=== PATIENT | female | born 1950 | race Caucasian/White ===

== ENCOUNTER 2023-01-01 10:15 | Emergency (ER) | payer OTHER ==
[~2023-01-01] VITALS: Ht 160 cm; Wt 77.3 kg
[2023-01-01] MEDS ORDERED: proparacaine 0.5% ophthalmic drops 15ml EACHEYE ONE (10:35)
[2023-01-01 10:47] VITALS: BP 163/102
[2023-01-01] MEDS ORDERED: TOBR5DRO2 RIGHTEYE (10:58)
== END 2023-01-01 11:05 | disposition home or self-care (01) ==
LOC: ER 10:17
DX: S05.01XA Injury of conjunctiva and corneal abrasion without foreign body, right eye, initial encounter (principal); I10 Essential (primary) hypertension; E11.9 Type 2 diabetes mellitus without complications; F17.200 Nicotine dependence, unspecified, uncomplicated; Z79.899 Other long term (current) drug therapy; X58.XXXA Exposure to other specified factors, initial encounter; Y93.89 Activity, other specified; Y92.89 Other specified places as the place of occurrence of the external cause; Y99.8 Other external cause status
CPT/HCPCS: 99283

== ENCOUNTER 2023-02-27 10:10 | Emergency (ER) | payer OTHER ==
[~2023-02-27] VITALS: Ht 160 cm; Wt 100.0 kg
[~2023-02-27 10:10] MED LIST: TOBR5DRO2 RIGHTEYE
[2023-02-27 10:28] VITALS: BP 138/76
== END 2023-02-27 14:13 | disposition home or self-care (01) ==
LOC: ER 10:10
DX: L89.310 Pressure ulcer of right buttock, unstageable (principal); I10 Essential (primary) hypertension; E11.9 Type 2 diabetes mellitus without complications; Z88.0 Allergy status to penicillin; Z88.6 Allergy status to analgesic agent; Z91.018 Allergy to other foods; Z79.899 Other long term (current) drug therapy
CPT/HCPCS: 99281

== ENCOUNTER 2023-03-01 21:21 | Emergency (ER) | payer OTHER ==
[~2023-03-01] VITALS: Ht 160 cm; Wt 90.0 kg
[2023-03-02] MEDS ORDERED: OFLO5DRO5 LEFT EAR (01:03)
[2023-03-02] MEDS ORDERED: CEFD300C3 PO (01:03)
[2023-03-02 01:57] VITALS: BP 167/95
[2023-03-02] MEDS ORDERED: TETanus/Pertussis (Acell)/Diphther VAC/PF (Tdap-Adult) 0.5ml syringe IMVAC ONE (02:15)
== END 2023-03-02 02:32 | disposition home or self-care (01) ==
LOC: ER 21:22
DX: M25.552 Pain in left hip (principal); R42 Dizziness and giddiness; Y93.89 Activity, other specified; Y92.89 Other specified places as the place of occurrence of the external cause; Y99.8 Other external cause status
CPT/HCPCS: 73502; 73551; 73564; 90471; 90715; 93005; 99284; J7042

== ENCOUNTER 2023-04-15 12:06 | Emergency (ER) | payer OTHER, MEDICARE ==
[~2023-04-15] VITALS: Ht 160 cm; Wt 56.8 kg
[~2023-04-15 12:06] MED LIST changes: +CEFD300C3 PO; +OFLO5DRO5 LEFT EAR
[2023-04-15 12:13] VITALS: BP 142/71; PULSE 100; RESP 18; TEMP 97.8; O2SAT 99
[2023-04-15] MEDS ORDERED: LIDOcaine 5% patch TP STA (15:07)
[2023-04-15] MEDS ORDERED: LIDO1ADH67 TOP (16:42)
== END 2023-04-15 16:46 | disposition home or self-care (01) ==
LOC: ER 12:08
DX: M54.50 Low back pain, unspecified (principal); I10 Essential (primary) hypertension; E11.9 Type 2 diabetes mellitus without complications; Z88.0 Allergy status to penicillin; Z88.6 Allergy status to analgesic agent; Z91.012 Allergy to eggs
CPT/HCPCS: 72100; 99284

== ENCOUNTER 2023-05-02 17:11 | Inpatient (IN) | payer MEDICARE, OTHER ==
[~2023-05-02] VITALS: Ht 160 cm; Wt 63.6 kg
[~2023-05-02 17:11] MED LIST changes: +LIDO1ADH67 TOP
[2023-05-02] MEDS ORDERED: metoclopramide 5 mg/ml inj IV ONE (18:45)
[2023-05-02] MEDS ORDERED: diphenhydrAMINE 50 mg/ml inj IV ONE (18:45)
[2023-05-02] MEDS ORDERED: normal saline 1000ML IV soln IVB ONE ×2 (18:45→21:10)
[2023-05-02 19:49] LABS: BASOPHILS % (AUTO) 0.1 % (0-1); EOSINOPHILS % (AUTO) 0 % (0-6); HEMATOCRIT 45.1 % (35.0-45.0); HEMOGLOBIN 15.6 g/dl (12.0-16.0); LYMPHOCYTES # (AUTO) 0.7 X10'3 (1.1-4.8); LYMPHOCYTES % (AUTO) 4.4 % (21-51); MEAN CORPUSCULAR HEMOGLOBIN 28.7 PG (27.0-31.0); MEAN CORPUSCULAR HGB CONC 34.7 g/dL (33.0-36.5); MEAN CORPUSCULAR VOLUME 82.6 FL (78-98); MEAN PLATELET VOLUME 9.2 FL (7.4-10.4); MONOCYTES # (AUTO) 0.3 X10'3 (0-0.9); MONOCYTES % (AUTO) 1.9 % (2-12); NEUTROPHILS # (AUTO) 14.9 X10'3 (1.8-7.7); NEUTROPHILS % (AUTO) 93.6 % (42-75); PLATELET COUNT 338 X10'3 (140-440); RED BLOOD COUNT 5.46 X10'6 (4.20-5.60); RED CELL DISTRIBUTION WIDTH 14.2 % (11.5-14.5); WHITE BLOOD COUNT 15.9 X10'3 (4.5-11.0)
[2023-05-02 20:16] LABS: ALANINE AMINOTRANSFERASE 21 U/L (12-78); ALBUMIN 3.9 G/DL (3.4-5.0); ALBUMIN/GLOBULIN RATIO 0.9 (1.1-1.5); ALKALINE PHOSPHATASE 86 IU/L (46-116); ANION GAP 15 (8-16); ASPARTATE AMINO TRANSFERASE 15 U/L (10-37); BILIRUBIN,TOTAL 0.8 MG/DL (0.1-1.0); BLOOD UREA NITROGEN 29 MG/DL (7-18); BUN/CREATININE RATIO 34.9 (10.0-20.0); CALCIUM 9.8 MG/DL (8.5-10.1); CHLORIDE 92 MMOL/L (99-107); CREATININE 0.83 MG/DL (0.40-0.90); GLUCOSE 393 MG/DL (70-104); LIPASE < 50 U/L (73-393); MAGNESIUM 1.7 MG/DL (1.5-2.4); POTASSIUM 3.1 MMOL/L (3.5-5.1); SODIUM 133 MMOL/L (135-145); TOTAL CARBON DIOXIDE 25.8 MMOL/L (24-32); TOTAL PROTEIN 8.3 G/DL (6.4-8.2); eCRCL 52 ML/MIN; eGFR 68 ML/MIN
[2023-05-02 21:17] LABS: BILIRUBIN,URINE NEGATIVE (Neg); CLARITY,URINE CLEAR (Clear); COLOR,URINE YELLOW (Yellow); GLUCOSE, URINE >=1000 mg/dl (Neg); KETONES,URINE 40 mg/dl (Neg); LEUKOCYTE ESTERASE ,URINE NEGATIVE (Neg); NITRITES, URINE NEGATIVE (Neg); OCCULT BLOOD,URINE SMALL (Neg); PH,URINE 5.5 (4.8-8.0); PROTEIN,URINE TRACE mg/dl (Neg); UROBILINOGEN,URINE 0.2 E.U/dL (0.2-1.0)
[2023-05-02 21:33] LABS: UA COLLECTION TYPE CLN CATCH MIDSTREAM
[2023-05-02 21:35] LABS: BACTERIA,URINE FEW /HPF (Neg); SQUAMOUS EPITHELIAL CELL,UR FEW /LPF (FEW)
[2023-05-02] MEDS ORDERED: insulin regular, human 10 units/0.1 ml syringe SQ ONE (21:40)
[2023-05-02] MEDS ORDERED: CefTRIAXone 2gm/D5W 50ml BAG 50 ML IV ONE (21:40)
[2023-05-02] MEDS ORDERED: ondansetron/PF 4mg/2ml inj IV ONE (21:40)
[2023-05-02] MEDS ORDERED: ISOS30TA84 PO (22:57)
[2023-05-02] MEDS ORDERED: INSU100I52 SQ (22:57)
[2023-05-02] MEDS ORDERED: [UNRECOGNIZED DRUG - CODE] PO (22:57)
[2023-05-02] MEDS ORDERED: NOVRI SQ (22:57)
[2023-05-02] MEDS ORDERED: [UNRECOGNIZED DRUG - CODE] PO (23:00)
[2023-05-03] MEDS ORDERED: ondansetron/PF 4mg/2ml inj IV PRN (01:45)
[2023-05-03] MEDS ORDERED: ondansetron 4mg rapidly disintigrating tab PO PRN (01:45)
[2023-05-03] MEDS ORDERED: potassium Cl 40MEQ/1/2NS 520ml 520 ML IV PRN (01:45)
[2023-05-03] MEDS ORDERED: magnesium hydroxide 30ml (MOM) UD suspension PO PRN (01:45)
[2023-05-03] MEDS ORDERED: morphine 2 MG/ML inj. syringe IV PRN ×2 (01:45)
[2023-05-03] MEDS ORDERED: diphenhydrAMINE 50 mg/ml inj IV PRN (01:45)
[2023-05-03] MEDS ORDERED: mag hydrox/Alum hydrox/simeth 30ml oral suspension PO PRN (01:45)
[2023-05-03] MEDS ORDERED: HYDROcodone/acetaminophen 5mg/325mg tablet PO PRN (01:45)
[2023-05-03] MEDS ORDERED: bisacodyl 10mg suppository rectal RC PRN (01:45)
[2023-05-03] MEDS ORDERED: potassium Cl 20 mEq SR tablet PO PRN ×2 (01:45)
[2023-05-03] MEDS ORDERED: DEXTROSE 15 GM of carb/4 tabs (each vial/BOTTLE has 4 tablets) PO PRN ×2 (01:55)
[2023-05-03] MEDS ORDERED: MESSAGE TO PHARMACY PO ONE (01:55)
[2023-05-03] MEDS ORDERED: glucagon, human recombinant 1mg kit SUBCUT PRN (01:55)
[2023-05-03] MEDS ORDERED: dextrose 50%-water 50ml dispensing syringe IV PRN ×2 (01:55)
[2023-05-03 02:40] LABS: APTT 27 SECONDS (22-32); PROTHROMBIN TIME 10.5 SECONDS (9.0-12.0)
[2023-05-03] MEDS: potassium Cl 20mEq in NS 1,000 ML IV SCH ×2 (02:40→13:27)
[2023-05-03 02:46] LABS: HEMOGLOBIN A1C 9.6 % (4.5-6.2)
[2023-05-03 02:53] LABS: CREATINE KINASE 34 U/L (26-192); LIPASE < 50 U/L (73-393); MAGNESIUM 1.6 MG/DL (1.5-2.4); PHOSPHORUS 3.2 MG/DL (2.3-4.5); POTASSIUM 3.1 MMOL/L (3.5-5.1); PRO BRAIN NATRIURETIC PEPTIDE 1743 PG/ML (0-125); THYROID STIMULATING HORMONE 0.44 ulU/ml (0.34-4.50)
--- NOTE | 2023-05-03 03:09 | NUR ---
DR DICKSON NOTIFIED OF TROPONIN OF 138 NEW ORDERS WRITTEN TO CONTINUE TROPONIN SERIES AND DAILY ASPIRIN.
[2023-05-03] MEDS ORDERED: CefTRIAXone/D5W-Rocephin 1gm 50 ML IV SCH (08:00)
[2023-05-03] MEDS ORDERED: docusate sod 100mg capsule PO SCH (08:00)
[2023-05-03] MEDS ORDERED: aspirin 325mg tablet, delayed-release (Ecotrin) PO SCH (08:00)
[2023-05-03] MEDS ORDERED: K and/or MAG REPLACEMENT MC SCH (08:00)
[2023-05-03] MEDS ORDERED: heparin, porcine 5000 units/ml vial SQ SCH (08:00)
[2023-05-03] MEDS ORDERED: pantoprazole 40MG/NS 100ML BAG 100 ML IV SCH (08:00)
[2023-05-03 12:35] LABS: URINE AMPHETAMINE SCREEN NEGATIVE (Neg); URINE BARBITUATE SCREEN NEGATIVE (Neg); URINE BENZODIAZEPINES SCREEN NEGATIVE (Neg); URINE CANNABINOID SCREEN NEGATIVE (Neg); URINE COCAINE SCREEN NEGATIVE (Neg); URINE METHADONE SCREEN NEGATIVE (Neg); URINE OPIATE SCREEN NEGATIVE (Neg); URINE PHENCYCLIDINE SCREEN NEGATIVE (Neg)
[2023-05-03 12:44] LABS: OSMOLALITY UA 555 MOSM/K (50-1400)
[2023-05-03] MEDS: insulin Lispro (HumaLOG) vial - multi-dose SQ SCH ×2 (13:30→20:36)
[2023-05-03 20:48] VITALS: BP 109/56; PULSE 91; RESP 13; TEMP 98.4; O2SAT 99
--- NOTE | 2023-05-03 20:58 | NUR ---
1999 DR MALAGON AWARE PT WANTS TO LEAVE AMA
[2023-05-03] MEDS ORDERED: temazepam 15mg capsule PO PRN (21:00)
== END 2023-05-03 21:30 | disposition left against medical advice (07) | DRG 640 ==
LOC: ER 17:11 → ED HOLD 05-03 01:55
PROVIDERS: ADMIT Family Medicine; ATTEND Internal Medicine
DX: E86.0 Dehydration (principal); I21.A1 Myocardial infarction type 2; N17.9 Acute kidney failure, unspecified; N39.0 Urinary tract infection, site not specified; E87.1 Hypo-osmolality and hyponatremia; E10.22 Type 1 diabetes mellitus with diabetic chronic kidney disease; I12.9 Hypertensive chronic kidney disease with stage 1 through stage 4 chronic kidney disease, or unspecified chronic kidney disease; N18.9 Chronic kidney disease, unspecified; E10.65 Type 1 diabetes mellitus with hyperglycemia; Z53.29 Procedure and treatment not carried out because of patient's decision for other reasons; E87.6 Hypokalemia; R19.7 Diarrhea, unspecified; R82.4 Acetonuria; Z87.440 Personal history of urinary (tract) infections; Z88.0 Allergy status to penicillin; Z88.8 Allergy status to other drugs, medicaments and biological substances; Z91.012 Allergy to eggs; Z79.899 Other long term (current) drug therapy; Z79.4 Long term (current) use of insulin
CPT/HCPCS: 36415; 71045; 74176; 76536; 80053; 80305; 81001; 82550; 82948; 83036; 83605; 83690; 83735; 83880; 83935; 84100; 84132; 84145; 84443; 84484; 85025; 85610; 85730; 87040; 87088; 93005; 93306; 99285; C9113; G0378; J0696; J1200; J1815; J2405; J2765; J3480; J7030

== ENCOUNTER 2023-07-29 10:14 | Emergency (ER) | payer OTHER ==
[~2023-07-29] VITALS: Ht 160 cm; Wt 59.1 kg
[~2023-07-29 10:14] MED LIST changes: -CEFD300C3 PO; +INSU100I52 SQ; +ISOS30TA84 PO; -LIDO1ADH67 TOP; +NOVRI SQ; -OFLO5DRO5 LEFT EAR; -TOBR5DRO2 RIGHTEYE; +[UNRECOGNIZED DRUG - CODE] PO
[2023-07-29 10:37] VITALS: TEMP 97.9
[2023-07-29 12:06] VITALS: BP 137/79; PULSE 92; RESP 18; O2SAT 99
== END 2023-07-29 12:14 | disposition home or self-care (01) ==
LOC: ER 10:15
DX: S83.91XA Sprain of unspecified site of right knee, initial encounter (principal); S90.31XA Contusion of right foot, initial encounter; M25.461 Effusion, right knee; I10 Essential (primary) hypertension; E11.9 Type 2 diabetes mellitus without complications; Z88.0 Allergy status to penicillin; Z91.012 Allergy to eggs; Z88.8 Allergy status to other drugs, medicaments and biological substances; Z79.899 Other long term (current) drug therapy; Z79.4 Long term (current) use of insulin; X50.1XXA Overexertion from prolonged static or awkward postures, initial encounter; Y93.01 Activity, walking, marching and hiking; Y92.89 Other specified places as the place of occurrence of the external cause; Y99.8 Other external cause status
CPT/HCPCS: 73564; 73630; 99284; A6449

== ENCOUNTER 2023-09-11 16:24 | Emergency (ER) | payer OTHER ==
[~2023-09-11] VITALS: Ht 160 cm; Wt 77.3 kg
[2023-09-11] MEDS ORDERED: ibuprofen tablet 400 MG TABLET PO ONE (21:30)
[2023-09-11] MEDS ORDERED: IBUP-1984 PO (21:54)
[2023-09-11 22:01] VITALS: BP 134/62; PULSE 99; RESP 18; TEMP 98.7; O2SAT 99
== END 2023-09-11 22:04 | disposition home or self-care (01) ==
LOC: ER 16:24
DX: H61.22 Impacted cerumen, left ear (principal); I10 Essential (primary) hypertension; E11.9 Type 2 diabetes mellitus without complications; Z88.0 Allergy status to penicillin; Z88.6 Allergy status to analgesic agent; Z79.899 Other long term (current) drug therapy
CPT/HCPCS: 99284

== ENCOUNTER 2023-12-13 09:11 | Emergency (ER) | payer OTHER, MEDICARE ==
[~2023-12-13] VITALS: Ht 160 cm; Wt 63.6 kg
[2023-12-13 11:04] LABS: MEAN PLATELET VOLUME 8.7 FL (7.4-10.4)
[2023-12-13 11:05] LABS: BASOPHILS # (AUTO) 0.1 X10'3 (0-0.2); BASOPHILS % (AUTO) 1.1 % (0-1); EOSINOPHILS # (AUTO) 1.3 X10'3 (0-0.9); HEMATOCRIT 35.3 % (35.0-45.0); LYMPHOCYTES # (AUTO) 1.3 X10'3 (1.1-4.8); LYMPHOCYTES % (AUTO) 12.8 % (21-51); MEAN CORPUSCULAR HEMOGLOBIN 28.2 PG (27.0-31.0); MEAN CORPUSCULAR HGB CONC 33.9 g/dL (33.0-36.5); MONOCYTES # (AUTO) 0.7 X10'3 (0-0.9); MONOCYTES % (AUTO) 7.4 % (2-12); NEUTROPHILS # (AUTO) 6.4 X10'3 (1.8-7.7); NEUTROPHILS % (AUTO) 65.7 % (42-75); PLATELET COUNT 260 X10'3 (140-440); RED BLOOD COUNT 4.26 X10'6 (4.20-5.60); RED CELL DISTRIBUTION WIDTH 15.3 % (11.5-14.5); WHITE BLOOD COUNT 9.8 X10'3 (4.5-11.0)
[2023-12-13 11:13] LABS: ALANINE AMINOTRANSFERASE 18 U/L (12-78); ALBUMIN 3.1 G/DL (3.4-5.0); ALBUMIN/GLOBULIN RATIO 0.8 (1.1-1.5); ALKALINE PHOSPHATASE 65 IU/L (46-116); ANION GAP 4 (8-16); ASPARTATE AMINO TRANSFERASE 11 U/L (10-37); BILIRUBIN,TOTAL 0.2 MG/DL (0.1-1.0); BLOOD UREA NITROGEN 17 MG/DL (7-18); BUN/CREATININE RATIO 26.2 (10.0-20.0); CHLORIDE 103 MMOL/L (99-107); CREATININE 0.65 MG/DL (0.40-0.90); GLUCOSE 316 MG/DL (70-104); POTASSIUM 4.5 MMOL/L (3.5-5.1); SODIUM 136 MMOL/L (135-145); TOTAL CARBON DIOXIDE 28.6 MMOL/L (24-32); TOTAL PROTEIN 6.9 G/DL (6.4-8.2); eCRCL 66 ML/MIN; eGFR 90 ML/MIN
[2023-12-13 11:14] LABS: C-REACTIVE PROTEIN 0.25 MG/DL (0.0-0.5); CREATINE KINASE 82 U/L (26-192); MAGNESIUM 1.6 MG/DL (1.5-2.4)
[2023-12-13 11:53] VITALS: TEMP 98.3
[2023-12-13] MEDS: ibuprofen 200mg tablet PO ONE (14:53)
[2023-12-13] MEDS: magnesium 2GM in 50ml NS 50 ML IV ONE (14:53)
[2023-12-13 16:44] VITALS: BP 114/66; PULSE 80; RESP 16; O2SAT 99
== END 2023-12-13 16:47 | disposition home or self-care (01) ==
LOC: ER 09:12
DX: M79.661 Pain in right lower leg (principal); I10 Essential (primary) hypertension; E11.65 Type 2 diabetes mellitus with hyperglycemia; Z88.0 Allergy status to penicillin; Z88.8 Allergy status to other drugs, medicaments and biological substances; Z91.012 Allergy to eggs
CPT/HCPCS: 80053; 82550; 83735; 85025; 85651; 86140; 96365; 99285; J3475

== ENCOUNTER 2024-03-22 12:05 | Emergency (ER) | payer OTHER ==
[~2024-03-22 12:05] MED LIST changes: -INSU100I52 SQ; -ISOS30TA84 PO; +ONDA4TAB12 PO; -[UNRECOGNIZED DRUG - CODE] PO
[2024-03-22 14:49] VITALS: TEMP 97.7
[2024-03-22] MEDS: CefTRIAXone 1000mg IM Kit (w/lidocaine diluent) IM ONE (16:10)
[2024-03-22] MEDS ORDERED: AZIT250T83 PO (16:13)
[2024-03-22 16:19] VITALS: BP 144/78; PULSE 85; RESP 16; O2SAT 95
== END 2024-03-22 16:19 | disposition home or self-care (01) ==
LOC: ER 12:06
DX: R07.89 Other chest pain (principal); J16.8 Pneumonia due to other specified infectious organisms; I10 Essential (primary) hypertension; E11.9 Type 2 diabetes mellitus without complications; Z90.49 Acquired absence of other specified parts of digestive tract; Z98.890 Other specified postprocedural states; Z88.0 Allergy status to penicillin; Z88.8 Allergy status to other drugs, medicaments and biological substances; Z91.012 Allergy to eggs; Z79.4 Long term (current) use of insulin; Z79.899 Other long term (current) drug therapy
CPT/HCPCS: 71045; 93005; 96372; 99283; J0696

== ENCOUNTER 2024-04-08 19:44 | Emergency (ER) | payer OTHER ==
[~2024-04-08] VITALS: Ht 160 cm; Wt 68.2 kg
[~2024-04-08 19:44] MED LIST changes: +ONDA-243 PO; -ONDA4TAB12 PO
[2024-04-08 21:24] LABS: BASOPHILS # (AUTO) 0.1 X10'3 (0-0.2); EOSINOPHILS # (AUTO) 2.1 X10'3 (0-0.9); HEMATOCRIT 34.9 % (35.0-45.0); HEMOGLOBIN 11.3 g/dl (12.0-16.0); LYMPHOCYTES # (AUTO) 1.9 X10'3 (1.1-4.8); LYMPHOCYTES % (AUTO) 15.6 % (21-51); MEAN CORPUSCULAR HEMOGLOBIN 27.8 PG (27.0-31.0); MEAN CORPUSCULAR HGB CONC 32.3 g/dL (33.0-36.5); MEAN PLATELET VOLUME 8.6 FL (7.4-10.4); MONOCYTES # (AUTO) 0.9 X10'3 (0-0.9); MONOCYTES % (AUTO) 7.6 % (2-12); NEUTROPHILS # (AUTO) 7.3 X10'3 (1.8-7.7); NEUTROPHILS % (AUTO) 58.8 % (42-75); PLATELET COUNT 314 X10'3 (140-440); RED BLOOD COUNT 4.06 X10'6 (4.20-5.60); RED CELL DISTRIBUTION WIDTH 14.7 % (11.5-14.5); WHITE BLOOD COUNT 12.4 X10'3 (4.5-11.0)
[2024-04-08 21:32] LABS: ALBUMIN 3.4 G/DL (3.4-5.0); ANION GAP 5 (8-16); BLOOD UREA NITROGEN 22 MG/DL (7-18); BUN/CREATININE RATIO 24.4 (10.0-20.0); CALCIUM 9.3 MG/DL (8.5-10.1); CHLORIDE 104 MMOL/L (99-107); GLUCOSE 275 MG/DL (70-104); MAGNESIUM 1.7 MG/DL (1.5-2.4); POTASSIUM 4.4 MMOL/L (3.5-5.1); PRO BRAIN NATRIURETIC PEPTIDE 1636 PG/ML (0-125); SODIUM 138 MMOL/L (135-145); TOTAL CARBON DIOXIDE 28.6 MMOL/L (24-32); eCRCL 47 ML/MIN; eGFR 62 ML/MIN
[2024-04-08 22:07] VITALS: BP 185/111; PULSE 112; RESP 18; TEMP 98.5; O2SAT 96
== END 2024-04-08 22:11 | disposition left against medical advice (07) ==
LOC: ER 19:45
DX: R79.89 Other specified abnormal findings of blood chemistry (principal); I10 Essential (primary) hypertension; E11.9 Type 2 diabetes mellitus without complications; Z88.0 Allergy status to penicillin; Z88.6 Allergy status to analgesic agent; Z91.012 Allergy to eggs; Z91.018 Allergy to other foods; Z79.4 Long term (current) use of insulin; Z79.899 Other long term (current) drug therapy; Z90.49 Acquired absence of other specified parts of digestive tract
CPT/HCPCS: 36415; 71045; 80048; 83735; 83880; 84145; 84484; 85025; 93005; 99285

== ENCOUNTER 2024-05-27 11:23 | Emergency (ER) | payer OTHER ==
[~2024-05-27] VITALS: Ht 160 cm; Wt 81.8 kg
[2024-05-27 12:42] VITALS: BP 128/62; PULSE 93; RESP 14; TEMP 96.2; O2SAT 96
[2024-05-27] MEDS ORDERED: CIPR2.5D21 RIGHTEYE (15:32)
[2024-05-27] MEDS: fluorescein sod 1mg ophthalmic strip RIGHTEYE ONE (15:35)
[2024-05-27] MEDS: proparacaine 0.5% ophthalmic drops 15ml RIGHTEYE ONE (15:35)
== END 2024-05-27 15:45 | disposition home or self-care (01) ==
LOC: ER 11:24
DX: S05.01XA Injury of conjunctiva and corneal abrasion without foreign body, right eye, initial encounter (principal); I10 Essential (primary) hypertension; E11.9 Type 2 diabetes mellitus without complications; Z88.0 Allergy status to penicillin; Z88.8 Allergy status to other drugs, medicaments and biological substances; Z91.012 Allergy to eggs; Z79.4 Long term (current) use of insulin; Z79.899 Other long term (current) drug therapy; Z90.49 Acquired absence of other specified parts of digestive tract; Z98.890 Other specified postprocedural states; W22.8XXA Striking against or struck by other objects, initial encounter; Y93.89 Activity, other specified; Y92.89 Other specified places as the place of occurrence of the external cause; Y99.8 Other external cause status
CPT/HCPCS: 99283

== ENCOUNTER 2024-06-29 14:33 | Emergency (ER) | payer OTHER ==
[~2024-06-29] VITALS: Ht 160 cm; Wt 68.2 kg
[2024-06-29] MEDS ORDERED: SULF1TAB49 PO (15:12)
[2024-06-29 15:50] VITALS: BP 118/60; PULSE 95; RESP 16; TEMP 97.7; O2SAT 95
== END 2024-06-29 15:54 | disposition home or self-care (01) ==
LOC: ER 14:34
DX: S91.102A Unspecified open wound of left great toe without damage to nail, initial encounter (principal); E11.40 Type 2 diabetes mellitus with diabetic neuropathy, unspecified; I10 Essential (primary) hypertension; Z88.0 Allergy status to penicillin; Z91.012 Allergy to eggs; Z91.018 Allergy to other foods; Z79.4 Long term (current) use of insulin; Z79.899 Other long term (current) drug therapy; Z90.49 Acquired absence of other specified parts of digestive tract; Z98.890 Other specified postprocedural states; X58.XXXA Exposure to other specified factors, initial encounter; Y93.9 Activity, unspecified; Y92.89 Other specified places as the place of occurrence of the external cause; Y99.8 Other external cause status
CPT/HCPCS: 99284

== ENCOUNTER 2024-08-30 12:18 | Emergency (ER) | payer OTHER ==
[~2024-08-30] VITALS: Ht 160 cm; Wt 68.2 kg
[2024-08-30 13:55] VITALS: BP 140/88; PULSE 78; RESP 16; TEMP 97.4; O2SAT 99
== END 2024-08-30 13:56 | disposition home or self-care (01) ==
LOC: ER 12:18
DX: M25.571 Pain in right ankle and joints of right foot (principal); I10 Essential (primary) hypertension; E11.9 Type 2 diabetes mellitus without complications; Z88.0 Allergy status to penicillin; Z88.6 Allergy status to analgesic agent; Z91.012 Allergy to eggs; Z88.8 Allergy status to other drugs, medicaments and biological substances; Z79.4 Long term (current) use of insulin; Z90.49 Acquired absence of other specified parts of digestive tract; Z98.890 Other specified postprocedural states
CPT/HCPCS: 73610; 99284

== ENCOUNTER 2024-09-16 19:08 | Inpatient (IN) | payer OTHER, MEDICARE ==
[~2024-09-16] VITALS: Ht 160 cm; Wt 78.6 kg
[~2024-09-16 19:08] MED LIST changes: +aspirin 81mg tab.chew ONE
[2024-09-16] MEDS: aspirin 81mg tab.chew PO ONE (19:40)
[2024-09-16] MEDS ORDERED: amiodarone/D5 360MG/200ML BAG 200 ML IV SCH (19:40)
[2024-09-16] MEDS: amiodarone 150mg/dext, iso-os 100 ML IV ONE (19:43)
[2024-09-16] MEDS ORDERED: heparin 10,000 units/1 ML INJ IV PRN (19:45)
[2024-09-16] MEDS ORDERED: heparin 10,000 units/1 ML INJ IV ONE (19:45)
[2024-09-16] MEDS ORDERED: heparin 25,000 UNIT/250ml bag 250 ML IV PRN (19:45)
[2024-09-16 19:46] LABS: BASOPHILS # (AUTO) 0.2 X10'3 (0-0.2); BASOPHILS % (AUTO) 0.7 % (0-1); EOSINOPHILS % (AUTO) 0 % (0-6); HEMOGLOBIN 14.7 g/dl (12.0-16.0); LYMPHOCYTES # (AUTO) 0.4 X10'3 (1.1-4.8); LYMPHOCYTES % (AUTO) 1.8 % (21-51); MEAN CORPUSCULAR HEMOGLOBIN 28.7 PG (27.0-31.0); MEAN CORPUSCULAR HGB CONC 31.2 g/dL (33.0-36.5); MEAN CORPUSCULAR VOLUME 91.8 FL (78-98); MEAN PLATELET VOLUME 10.2 FL (7.4-10.4); MONOCYTES # (AUTO) 1.5 X10'3 (0-0.9); MONOCYTES % (AUTO) 6.6 % (2-12); NEUTROPHILS # (AUTO) 20.7 X10'3 (1.8-7.7); NEUTROPHILS % (AUTO) 90.9 % (42-75); PLATELET COUNT 262 X10'3 (140-440); RED BLOOD COUNT 5.11 X10'6 (4.20-5.60); WHITE BLOOD COUNT 22.8 X10'3 (4.5-11.0)
[2024-09-16] MEDS ORDERED: LIDOcaine 1% (10mg/ml) 2ml vial ONE (19:48)
[2024-09-16] MEDS ORDERED: epiNEPHrine 0.1mg/ml 10ml syringe ONE (19:49)
[2024-09-16] MEDS ORDERED: heparin 1,000unit/ml 10ml vial 10 ML ONE (19:49)
[2024-09-16] MEDS ORDERED: fentaNYL/PF 50MCG/1 ML 2ML syringe ONE (19:49)
[2024-09-16] MEDS ORDERED: verapamil 2.5 mg/ml inj IV ONE (19:49)
[2024-09-16] MEDS ORDERED: midazolam 1 mg/ML 2ml injection ONE (19:49)
[2024-09-16] MEDS ORDERED: atropine 0.1mg/ml 10ml syringe ONE (19:49)
[2024-09-16] MEDS ORDERED: iohexol 350MG/ML 100ml bottle IV ONE (19:49)
[2024-09-16] MEDS ORDERED: LIDOcaine 1% 30ml preserv. free vial ONE (19:50)
[2024-09-16 20:07] LABS: ALBUMIN 3.2 G/DL (3.4-5.0); ANION GAP 24 (8-16); BLOOD UREA NITROGEN 49 MG/DL (7-18); BUN/CREATININE RATIO 29.7 (10.0-20.0); CHLORIDE 92 MMOL/L (99-107); CREATININE 1.65 MG/DL (0.40-0.90); MAGNESIUM 2.9 MG/DL (1.5-2.4); POTASSIUM 4.1 MMOL/L (3.5-5.1); SODIUM 130 MMOL/L (135-145); eCRCL 25 ML/MIN; eGFR 31 ML/MIN
[2024-09-16 20:10] LABS: INR 1.7 INR; PROTHROMBIN TIME 17.4 SECONDS (9.0-12.0)
[2024-09-16 20:19] LABS: PRO BRAIN NATRIURETIC PEPTIDE > 30000 PG/ML (0-125)
[2024-09-16 20:25] LABS: GLUCOSE 940 MG/DL (70-104)
[2024-09-16 20:26] LABS: APTT 78 SECONDS (22-32)
[2024-09-16 20:26] LABS: TOTAL CARBON DIOXIDE 14.1 MMOL/L (24-32)
[2024-09-16] MEDS ORDERED: phenylephrine 10mg/ml inj. ONE (20:30)
[2024-09-16] MEDS ORDERED: ticagrelor 90mg tablet ONE (20:43)
[2024-09-16 21:30] VITALS: BP 80/55; PULSE 94; RESP 10; O2SAT 96
[2024-09-16 21:45] VITALS: BP 101/46; PULSE 97; RESP 15; O2SAT 97
[2024-09-16 22:00] VITALS: BP 93/43; PULSE 97; RESP 16; O2SAT 98
[2024-09-16 22:30] VITALS: BP 90/43; PULSE 98; RESP 15; O2SAT 98
[2024-09-16] MEDS ORDERED: HYDROcodone/acetaminophen 10/325mg tab PO PRN (22:45)
[2024-09-16] MEDS ORDERED: proCHLORperazine 10 MG/2 ml inj IV PRN (22:45)
[2024-09-16] MEDS ORDERED: HYDROcodone/acetaminophen 5mg/325mg tablet PO PRN (22:45)
[2024-09-16] MEDS ORDERED: ondansetron/PF 4mg/2ml inj IV PRN (22:45)
[2024-09-16] MEDS ORDERED: OXAZEpam 15mg capsule PO PRN (22:45)
[2024-09-16] MEDS: Insulin Reg/NS 100units/100mL 100 ML IV SCH (23:05)
[2024-09-16] MEDS: heparin 10,000 units/1 ML INJ IV ONE (23:05)
[2024-09-16 23:08] LABS: BILIRUBIN,URINE NEGATIVE (Neg); CLARITY,URINE CLEAR (Clear); COLOR,URINE YELLOW (Yellow); GLUCOSE, URINE >=1000 mg/dl (Neg); KETONES,URINE 40 mg/dl (Neg); LEUKOCYTE ESTERASE ,URINE NEGATIVE (Neg); NITRITES, URINE NEGATIVE (Neg); OCCULT BLOOD,URINE TRACE-INTACT (Neg); PH,URINE 5.5 (4.8-8.0); PROTEIN,URINE NEGATIVE (Neg); UROBILINOGEN,URINE 0.2 E.U/dL (0.2-1.0)
[2024-09-16 23:10] VITALS: BP 98/48; PULSE 98; RESP 17; O2SAT 99
[2024-09-16 23:17] LABS: ALBUMIN 3.3 G/DL (3.4-5.0); ANION GAP 28 (8-16); BLOOD UREA NITROGEN 48 MG/DL (7-18); BUN/CREATININE RATIO 30.4 (10.0-20.0); CHLORIDE 89 MMOL/L (99-107); CREATININE 1.58 MG/DL (0.40-0.90); MAGNESIUM 2.7 MG/DL (1.5-2.4); PHOSPHORUS 5.2 MG/DL (2.3-4.5); POTASSIUM 3.8 MMOL/L (3.5-5.1); SODIUM 129 MMOL/L (135-145); eCRCL 27 ML/MIN; eGFR 32 ML/MIN
[2024-09-16 23:29] LABS: GLUCOSE 904 MG/DL (70-104)
[2024-09-16 23:30] LABS: TOTAL CARBON DIOXIDE 12.3 MMOL/L (24-32)
[2024-09-16 23:43] LABS: UA COLLECTION TYPE FOLEY CATH
[2024-09-16 23:45] LABS: BACTERIA,URINE NONE SEEN /HPF (Neg); SQUAMOUS EPITHELIAL CELL,UR NONE SEEN /LPF (FEW); WBC,URINE NONE SEEN /HPF (0-4)
[2024-09-16] MEDS: normal saline 1000ML IV soln IVB ONE (23:50)
[2024-09-17] VITALS (11 sets, daily range): BP systolic 90–110; BP diastolic 45–69; PULSE 95–99; RESP 16–23; O2SAT 94–99
[2024-09-17] MEDS ORDERED: sodium phosphate inj. 30 MMOL in dextrose 5%-water 250 ML IV PRN (00:10)
[2024-09-17] MEDS ORDERED: acetaminophen 325mg tablet PO PRN ×2 (00:10)
[2024-09-17] MEDS ORDERED: magnesium hydroxide 30ml (MOM) UD suspension PO PRN (00:10)
[2024-09-17] MEDS ORDERED: potassium CL 20mEq in D5-1/2NS 1,000 ML IV PRN (00:10)
[2024-09-17] MEDS ORDERED: Insulin Reg/NS 100units/100mL 100 ML IV SCH (00:10)
[2024-09-17] MEDS ORDERED: potassium Cl 20 mEq SR tablet PO PRN ×2 (00:10)
[2024-09-17] MEDS ORDERED: Neutra Phos packet PO PRN (00:10)
[2024-09-17] MEDS ORDERED: morphine 4 MG/ML inj SYRINge IV PRN (00:10)
[2024-09-17] MEDS ORDERED: ondansetron/PF 4mg/2ml inj IV PRN (00:10)
[2024-09-17] MEDS ORDERED: insulin regular, human 10 units/0.1 ml syringe IV PRN (00:10)
[2024-09-17] MEDS ORDERED: sodium phosphate inj. 15 MMOL in dextrose 5%-water 250 ML IV PRN (00:10)
[2024-09-17] MEDS ORDERED: dextrose 50%-water 50ml dispensing syringe IV PRN ×2 (00:10)
[2024-09-17] MEDS ORDERED: morphine 2 MG/ML inj. syringe IV PRN (00:10)
[2024-09-17] MEDS: LidoCAINE 2% Topical Jelly 11mL syringe (UROJET) TOP ONE (01:20)
[2024-09-17] MEDS: normal saline 1000ml 1,000 ML IV SCH ×2 (01:46)
[2024-09-17 03:05] LABS: ALBUMIN 2.4 G/DL (3.4-5.0); ANION GAP 19 (8-16); BLOOD UREA NITROGEN 45 MG/DL (7-18); BUN/CREATININE RATIO 30.8 (10.0-20.0); CALCIUM 7.4 MG/DL (8.5-10.1); CHLORIDE 101 MMOL/L (99-107); CHOLESTEROL 168 MG/DL (0-200); CREATININE 1.46 MG/DL (0.40-0.90); HDL CHOLESTEROL 42 MG/DL (35-60); LDL CHOLESTEROL 95 MG/DL (50-100); PHOSPHORUS 3.3 MG/DL (2.3-4.5); SODIUM 135 MMOL/L (135-145); TOTAL CARBON DIOXIDE 15.5 MMOL/L (24-32); TRIGLYCERIDES 178 MG/DL (20-135); eCRCL 29 ML/MIN; eGFR 35 ML/MIN
[2024-09-17 03:18] LABS: GLUCOSE 693 MG/DL (70-104)
[2024-09-17] MEDS: potassium Cl 40MEQ/1/2NS 520ml 520 ML IV PRN (04:15)
[2024-09-17] MEDS: Insulin Reg/NS 100units/100mL 100 ML IV SCH (05:30)
[2024-09-17 06:44] LABS: ALANINE AMINOTRANSFERASE 48 U/L (12-78); ALBUMIN 2.7 G/DL (3.4-5.0); ALBUMIN/GLOBULIN RATIO 0.8 (1.1-1.5); ALKALINE PHOSPHATASE 95 IU/L (46-116); ANION GAP 11 (8-16); ASPARTATE AMINO TRANSFERASE 83 U/L (10-37); BILIRUBIN,TOTAL 0.4 MG/DL (0.1-1.0); BLOOD UREA NITROGEN 44 MG/DL (7-18); BUN/CREATININE RATIO 29.7 (10.0-20.0); CALCIUM 7.4 MG/DL (8.5-10.1); CHLORIDE 106 MMOL/L (99-107); CREATININE 1.48 MG/DL (0.40-0.90); MAGNESIUM 2.2 MG/DL (1.5-2.4); POTASSIUM 3.3 MMOL/L (3.5-5.1); SODIUM 139 MMOL/L (135-145); TOTAL CARBON DIOXIDE 22.5 MMOL/L (24-32); TOTAL PROTEIN 6.1 G/DL (6.4-8.2); eCRCL 28 ML/MIN; eGFR 35 ML/MIN
[2024-09-17 06:50] LABS: BASOPHILS % (AUTO) 0.1 % (0-1); EOSINOPHILS % (AUTO) 0 % (0-6); HEMATOCRIT 38.7 % (35.0-45.0); HEMOGLOBIN 12.8 g/dl (12.0-16.0); LYMPHOCYTES # (AUTO) 0.4 X10'3 (1.1-4.8); LYMPHOCYTES % (AUTO) 2.5 % (21-51); MEAN CORPUSCULAR HEMOGLOBIN 28.5 PG (27.0-31.0); MEAN CORPUSCULAR VOLUME 86.3 FL (78-98); MEAN PLATELET VOLUME 9.5 FL (7.4-10.4); MONOCYTES # (AUTO) 1.7 X10'3 (0-0.9); MONOCYTES % (AUTO) 9.4 % (2-12); NEUTROPHILS # (AUTO) 15.8 X10'3 (1.8-7.7); PLATELET COUNT 227 X10'3 (140-440); RED BLOOD COUNT 4.49 X10'6 (4.20-5.60); RED CELL DISTRIBUTION WIDTH 15.2 % (11.5-14.5); WHITE BLOOD COUNT 17.9 X10'3 (4.5-11.0)
[2024-09-17 06:52] LABS: GLUCOSE 487 MG/DL (70-104)
[2024-09-17] MEDS ORDERED: aspirin 81mg, enteric-coated 1 TAB TABLET.DR PO SCH (08:00)
[2024-09-17] MEDS ORDERED: famotidine 20mg tablet PO SCH (08:00)
[2024-09-17] MEDS ORDERED: amiodarone in dextrose, iso-osm 150mg/100ml bag IV ONE (08:00)
[2024-09-17] MEDS ORDERED: ticagrelor 90mg tablet PO SCH (08:00)
[2024-09-17] MEDS ORDERED: heparin, porcine 5000 units/ml vial SQ SCH (08:00)
[2024-09-17] MEDS: K and/or MAG REPLACEMENT MC SCH (08:41)
[2024-09-17] MEDS ORDERED: INSULIN LISPRO 100 UNIT/ML INSULN.PEN MULTI-DOSE SQ SCH (09:00)
== END 2024-09-17 12:45 | DRG 321 ==
LOC: ER 19:09 → CICU 2S 21:13 → UNDOADMIN 21:13 → CICU 2S 09-17 00:28
PROVIDERS: ADMIT Internal Medicine Interventional Cardiology; ATTEND Internal Medicine Interventional Cardiology
PROC: B2111ZZ Fluoroscopy of Multiple Coronary Arteries using Low Osmolar Contrast (ICD-10-PCS; principal; 2024-09-16)
PROC: 027034Z Dilation of Coronary Artery, One Artery with Drug-eluting Intraluminal Device, Percutaneous Approach (ICD-10-PCS; 2024-09-16)
PROC: 5A12012 Performance of Cardiac Output, Single, Manual (ICD-10-PCS; 2024-09-17)
PROC: 0BH17EZ Insertion of Endotracheal Airway into Trachea, Via Natural or Artificial Opening (ICD-10-PCS; 2024-09-17)
DX: I21.29 ST elevation (STEMI) myocardial infarction involving other sites (principal); E11.11 Type 2 diabetes mellitus with ketoacidosis with coma; I95.9 Hypotension, unspecified; I48.91 Unspecified atrial fibrillation; I49.01 Ventricular fibrillation; I25.10 Atherosclerotic heart disease of native coronary artery without angina pectoris; I10 Essential (primary) hypertension; Z88.0 Allergy status to penicillin; Z88.6 Allergy status to analgesic agent; Z91.012 Allergy to eggs; Z90.49 Acquired absence of other specified parts of digestive tract; Z79.4 Long term (current) use of insulin; Z83.3 Family history of diabetes mellitus
CPT/HCPCS: 92950; 93306; 93454; 96365; 99285; C9606; 36415; 71045; 80048; 80053; 80061; 81001; 82947; 82948; 83036; 83735; 83880; 84100; 84484; 85025; 85610; 85730; 87081; 93005; A6258; C1725; C1751; C1758; C1760; C1769; C1874; G0378; J0171; J0282; J0461; J1644; J1815; J2003; J2250; J2370; J3010; J3475; J3480; J3490; J7030; Q9967